=== PATIENT | male | born 1975 | race Caucasian/White ===

== ENCOUNTER 2016-12-08 15:46 | Emergency (ER) | payer OTHER ==
--- NOTE | 2016-12-08 16:28 | EDPHY ---
H & P Stated Complaint: MULTIPLE AREAS OF ABCESS AND SKIN INFECTIONS HPI/ROS: HPI CHIEF COMPLAINT: Multiple skin lesions, excoriations, possible cellulitis and infection HISTORY OF PRESENT ILLNESS: This patient very pleasant 41-year-old male, significant past medical history for IV drug use, and skin picking, endocarditis with tricuspid valve replacement, presents emergency room with extensive aches skin excoriations down his arms. He states that he has Skin knot picker cloth. He is concerned that some of these excoriated sites are infected. He denies fever. He denies chest pain or shortness of breath. He denies any recent IV drug use except for 1 month ago. He does IV heroin. He denies any IV drug use in the past month. 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 Exam Constitutional triage nursing summary reviewed, vital signs reviewed, awake/ alert. Eyes normal conjunctivae and sclera, EOMI, PERRLA. HENT normal inspection, atraumatic, moist mucus membranes, no epistaxis, neck supple/ no meningismus, no raccoon eyes. Respiratory clear to auscultation bilaterally, normal breath sounds, no respiratory distress, no wheezing. Cardiovascular no murmur on exam. rate normal, regular rhythm, no murmur, no edema, distal pulses normal. Gastrointestinal soft, non-tender, no rebound, no guarding, normal bowel sounds, no distension, no pulsatile mass. Genitourinary no CVA tenderness. Musculoskeletal no midline vertebral tenderness, full range of motion, no calf swelling, no tenderness of extremities, no meningismus, good pulses, neurovascularly intact. Skin multiple skin excoriated sites down arms that are pink, mild erythema, no mansi abscess, no significant crepitus or induration. Extensive excoriations. Neurologic awake, alert and oriented x 3, AAOx3, moves all 4 extremities equally, motor intact, sensory intact, CN II-XII intact, normal cerebellar, normal vision, normal speech. Psychiatric normal mood/affect. Heme/Lymph/Immune no lymphadenopathy. Differential Diagnosis: This patient has extensive excoriations down his arms concerning for staph/strep infection. I do not visualize any significant abscess down his arms. There is numerous excoriated picking sites. Possible IV drug use sites. There is no murmur on exam. Plan for this patient warm compresses, warm soaks, Keflex and Bactrim. He understands watch he has areas closely and return emergency room if there worse. Vital signs noted to be stable afebrile. Nontoxic appearing. No murmur on exam. Source: Patient - Personal History Current Tetanus/Diphtheria Vaccine: No Tetanus Vaccine Date: <10yrs - Medical/Surgical History Hx Asthma: No Hx Chronic Respiratory Disease: Yes Hx Diabetes: No Hx Cardiac Disease: No Hx Renal Disease: No Hx Cirrhosis: No Hx Alcoholism: Yes Hx HIV/AIDS: No Hx Splenectomy or Spleen Trauma: No Other PMH: chronic PNA. bipolar. tricuspid valve repair 2011, pericarditis. - Social History Smoking Status: Current every day smoker Constitutional: Initial Vital Signs Temperature (C) 37.4 C 12/08/16 15:55 Heart Rate 88 12/08/16 15:55 Respiratory Rate 18 12/08/16 15:55 Blood Pressure 119/76 12/08/16 15:55 O2 Sat (%) 97 12/08/16 15:55 O2 Delivery Mode Room Air Allergies/Adverse Reactions: No Allergies [NKDA] Allergy (Verified 09/19/15 01:17) CATS Allergy (Uncoded 08/27/12 02:02) Home Medications: Medication Instructions Recorded ALPRAZolam [Xanax 1 MG (*)] 1 mg PO TID PRN 07/21/11 Bupropion HCl [Bupropion XL] 300 mg PO DAILY 07/21/11 FLUoxetine [Prozac 20 MG (*)] 60 mg PO DAILY 07/21/11 lamoTRIgine [LamICTAL 100 MG (*)] 200 mg PO DAILY 07/21/11 Zolpidem Tartrate [Ambien 10 mg] 10 mg PO HS PRN 06/04/12 Albuterol Hfa Anes Only [Proair 2 puffs IH Q6H PRN 08/27/12 Hfa Icu (*)] Asenapine Maleate [Saphris] 10 mg SL HS PRN 04/05/13 Dextroamphetamine/Amphetamine 40 mg PO DAILY 08/27/12 [Adderall Xr 20 mg Capsule] Propranolol HCl [Inderal 20mg (*)] 20 mg PO DAILY PRN 08/27/12 Multivitamins [Multivitamin (*)] 1 each PO DAILY 09/10/15 Acetaminophen [Tylenol 325mg (*)] 650 mg PO Q4 PRN #0 tab 09/14/15 Azithromycin [Zithromax] 250 mg PO DAILY #5 tab 09/14/15 Aspirin 81mg (OTC) 09/19/15 Cephalexin [Keflex] 500 mg PO Q6H #28 cap 12/08/16 Sulfamethox/Tmp 800/160 mg 1 tab PO BID@1000,2200 #14 tab 12/08/16 [Bactrim Ds] Departure - Departure Disposition: Home, Routine, Self-Care Clinical Impression: Cellulitis Qualifiers: Site of cellulitis: extremity Site of cellulitis of extremity: upper extremity Laterality: unspecified laterality Qualified Code(s): L03.119 - Cellulitis of unspecified part of limb Condition: Good Instructions: Cellulitis (ED) Additional Instructions: 1. I recommend perform warm compresses or soaks 2 to 3 times a day. 2. Take antibiotics as prescribed. 3. Return emergency room if you have worsening symptoms includes worsening redness, swelling, pain, fever. Referrals: Amy Faulkner MD [Primary Care Provider] - As per Instructions Prescriptions: Cephalexin [Keflex] 500 mg PO Q6H #28 cap Sulfamethox/Tmp 800/160 mg [Bactrim Ds] 1 tab PO BID@1000,2200 #14 tab
[2016-12-08 16:55] VITALS: BP 136/78; PULSE 70; RESP 20; TEMP 98.2; O2SAT 96
== END 2016-12-08 17:05 | disposition home or self-care (01) ==
DX: L03.114 Cellulitis of left upper limb (principal); L03.113 Cellulitis of right upper limb; F17.200 Nicotine dependence, unspecified, uncomplicated; Z79.82 Long term (current) use of aspirin

== ENCOUNTER 2017-06-24 18:21 | Inpatient (IN) | payer OTHER ==
--- NOTE | 2017-06-24 19:35 | EDPHY ---
HPI/HX/ROS/PE/MDM Narrative: CHIEF COMPLAINT: "Shortness of breath and achiness all over" HPI: The patient is a 42 y/o male with a history of IV drug abuse and endocarditis requiring tricuspid valve replacement complaining of increasing shortness of breath and myalgias over the last couple days. He has recurrent episodes of pneumonia and was most recently admitted here in August 2015 for this. He has COPD and uses home O2, but does not usually require it when not sleeping. He is currently requiring 9LPM O2 to maintain normal SpO2 saturation here. He has difficulty walking due to dyspnea and thinks he's had a fever, but does not have a thermometer to measure it. REVIEW OF SYSTEMS: Aside from elements discussed in the HPI, a comprehensive 10-point review of systems was reviewed and is negative. 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 PHYSICAL EXAM: General:Patient is alert, increased respiratory effort. 9LPM to maintain 93% saturation ENT:Eyes are normal to inspection. ENT inspection normal. Neck: Normal inspection. Full range of motion. Respiratory:Tachypneic. Breath sounds normal bilaterally. Cardiovascular: Regular rate and rhythm. Strong peripheral pulses. Normal cap refill. Abdomen:The abdomen is nontender to palpation. There are no peritoneal signs. Back: Normal to inspection. No tenderness to palpation. Skin: Normal color. Sores on arms. Warm and dry. Extremities: Normal appearance. Full range of motion. Neuro: Oriented x3. Normal motor function. Normal sensory function. ED Course: This is a 42 y/o male with history of IV drug abuse leading to endocarditis and tricuspid valve replacement who presents with a few-day history of progressive exertional dyspnea, subjective fever, and myalgias. He has a history of recurrent pneumonia infections and COPD exacerbations as well. He is tachypneic and requiring supplemental O2 at 9LPM to maintain normal saturation here. He is afebrile. Plan for IV, labs, flu swab, EKG, chest x-ray. Patient does not meet sepsis criteria. Flu swab is negative. 2037: Patient stated to RN he would leave if he was not given Xanax. He was informed that I will not be ordering Xanax in the ED. Chest x-ray: pneumonia, pulmonary edema. BNP is 1000. The 12 lead EKG was interpreted by myself. See hard copy and/or "tracemaster" electronic copy for interpretation. Reassessed patient and recommended admission for pneumonia and pulmonary edema. He agrees to this. MDM: This patient presents with hypoxia and PNA in the setting of a complicated medical history. Patient is not entirely straightforward, and past charting contains discrepancies as to whether he had a previous valve replacement vs. annuloplasty, and whether he is actively using IV drugs. I suspect he likely is , and a note from approximately 5 months ago indicates he had been using around that time, despite the fact he tells the hospitalist it has been 10 years. We will treat patient with intensive antiobiotic therapy given hx MRSA and question of artificial valve until this can all be sorted out. No signs of septic shock, PE, ACS, VT or PTx. - Data Points Imaging Results: Imaging Impressions Chest X-Ray 06/24/17 20:10 Impression: 1. Findings suggestive of cardiogenic pulmonary edema are noted. 2. Asymmetric opacity in the right lung could be either superimposed pneumonia or asymmetric pulmonary edema. Results called and discussed with Antoni James MD on 06/24/2017 at 22:41 Imaging: I viewed and interpreted images myself Laboratory Results: Laboratory Results 06/24/17 19:35 06/24/17 19:35 06/24/17 06/24/17 06/24/17 20:00 19:40 19:35 WBC RBC Hgb Hct MCV MCH MCHC RDW Plt Count MPV Neut % (Auto) Lymph % (Auto) Love % (Auto) Eos % (Auto) Baso % (Auto) Nucleat RBC Rel Count Absolute Neuts (auto) Absolute Lymphs (auto) Absolute Monos (auto) Absolute Eos (auto) Absolute Basos (auto) Absolute Nucleated RBC Immature Gran % Immature Gran # VBG Lactic Acid 2.1 mmol/L mmol/L (0.7-2.1) Sodium Potassium Chloride Carbon Dioxide Anion Gap BUN Creatinine Estimated GFR Glucose Calcium Troponin I NT-Pro-B Natriuret Pep 1000 pg/mL H pg/mL (0-125) Nasal Influenza A PCR NEGATIVE FOR FLU A (NEGATIVE) Nasal Influenza B PCR NEGATIVE FOR FLU B (NEGATIVE) 06/24/17 06/24/17 19:35 19:35 WBC 13.78 10^3/uL H 10^3/uL (3.80-9.50) RBC 4.20 10^6/uL L 10^6/uL (4.40-6.38) Hgb 13.7 g/dL g/dL (13.7-17.5) Hct 38.0 % L % (40.0-51.0) MCV 90.5 fL fL (81.5-99.8) MCH 32.6 pg pg (27.9-34.1) MCHC 36.1 g/dL g/dL (32.4-36.7) RDW 12.5 % % (11.5-15.2) Plt Count 177 10^3/uL 10^3/uL (150-400) MPV 9.5 fL fL (8.7-11.7) Neut % (Auto) 74.1 % % (39.3-74.2) Lymph % (Auto) 15.3 % % (15.0-45.0) Love % (Auto) 9.4 % % (4.5-13.0) Eos % (Auto) 0.3 % L % (0.6-7.6) Baso % (Auto) 0.2 % L % (0.3-1.7) Nucleat RBC Rel Count 0.0 % % (0.0-0.2) Absolute Neuts (auto) 10.22 10^3/uL H 10^3/uL (1.70-6.50) Absolute Lymphs (auto) 2.11 10^3/uL 10^3/uL (1.00-3.00) Absolute Monos (auto) 1.29 10^3/uL H 10^3/uL (0.30-0.80) Absolute Eos (auto) 0.04 10^3/uL 10^3/uL (0.03-0.40) Absolute Basos (auto) 0.03 10^3/uL 10^3/uL (0.02-0.10) Absolute Nucleated RBC 0.00 10^3/uL 10^3/uL (0-0.01) Immature Gran % 0.7 % % (0.0-1.1) Immature Gran # 0.09 10^3/uL 10^3/uL (0.00-0.10) VBG Lactic Acid Sodium 137 mEq/L mEq/L (135-145) Potassium 5.5 mEq/L H mEq/L (3.5-5.2) Chloride 103 mEq/L mEq/L (97-110) Carbon Dioxide 20 mEq/l L mEq/l (22-31) Anion Gap 14 mEq/L mEq/L (8-16) BUN 16 mg/dL mg/dL (7-23) Creatinine 0.8 mg/dL mg/dL (0.7-1.3) Estimated GFR > 60 Glucose 114 mg/dL H mg/dL (70-100) Calcium 9.0 mg/dL mg/dL (8.5-10.4) Troponin I < 0.012 ng/mL ng/mL (0.000-0.034) NT-Pro-B Natriuret Pep Nasal Influenza A PCR Nasal Influenza B PCR General Time Seen by Provider: 06/24/17 19:24 Initial Vital Signs: Initial Vital Signs Temperature (C) 37.1 C 06/24/17 18:30 Heart Rate 92 06/24/17 18:30 Respiratory Rate 20 06/24/17 18:30 Blood Pressure 124/79 H 06/24/17 18:30 O2 Sat (%) 89 L 06/24/17 18:30 O2 Delivery Mode Oxymizer O2 (L/minute) 10 Allergies/Adverse Reactions: No Allergies [NKDA] Allergy (Verified 09/19/15 01:17) CATS Allergy (Uncoded 08/27/12 02:02) Home Medications: Medication Instructions Recorded ALPRAZolam [Xanax 1 MG (*)] 1 mg PO TID PRN 07/21/11 FLUoxetine [Prozac 20 MG (*)] 60 mg PO DAILY 07/21/11 lamoTRIgine [LamICTAL 100 MG (*)] 200 mg PO DAILY 07/21/11 Zolpidem Tartrate [Ambien 10 mg] 10 mg PO HS PRN 06/04/12 Asenapine Maleate [Saphris] 10 mg SL HS PRN 08/27/12 Propranolol HCl [Inderal 20mg (*)] 20 mg PO DAILY PRN 08/27/12 Multivitamins [Multivitamin (*)] 1 each PO DAILY 09/10/15 Acetaminophen [Tylenol 325mg (*)] 650 mg PO Q4 PRN #0 tab 09/14/15 Aspirin [Aspirin 81mg (*)] 81 mg PO DAILY 09/19/15 Albuterol [Proventil Inhaler HFA 1 - 2 puffs IH Q4H PRN 06/25/17 (*)] Amphet Asp and D/Amphet [Adderall 40 - 60 mg PO DAILY 06/25/17 20 mg (*)] buPROPion XL [Wellbutrin Xl] 300 mg PO DAILY 06/25/17 Departure - Departure Disposition: [facility] Inpatient Acute Clinical Impression: Pulmonary edema Qualifiers: Chronicity: acute Qualified Code(s): J81.0 - Acute pulmonary edema Pneumonia Qualifiers: Pneumonia type: due to unspecified organism Laterality: right Lung location: unspecified part of lung Qualified Code(s): J18.9 - Pneumonia, unspecified organism Condition: Fair Report Scribed for: Antoni James Report Scribed by: Diann Haskins Date of Report: 06/24/17 Time of Report: 20:21 Physician Review and Approval Statement: Portions of this note were transcribed by an ED scribe. I personally performed the history, physical exam, and medical decision making; and confirm the accuracy of the information in the transcribed note.
[2017-06-24 19:47] LABS: PLATELET COUNT 177 10^3/uL (150-400)
--- NOTE | 2017-06-24 21:54 | CPEKG ---
Heart Rate: 82 RR Interval: 732 P-R Interval: 168 QRSD Interval: 100 QT Interval: 384 QTC Interval: 449 P [place]: -1 QRS [place]: 49 T Wave [place]: 97 EKG Severity - ABNORMAL ECG - EKG Impression: SINUS RHYTHM EKG Impression: PROBABLE LEFT ATRIAL ABNORMALITY EKG Impression: NONSPECIFIC T ABNORMALITIES, LATERAL LEADS Electronically Signed By: Kj Galeano 26-Jun-2017 12:53:10
[2017-06-24] MEDS ORDERED: PIPERACILLIN/TAZO 4.5 GM/DEX 100 ML IV ONE (23:48)
[2017-06-24] MEDS ORDERED: VANCOMYCIN HCL/NORMAL SALINE 250 ML IV ONE (23:48)
[2017-06-25] MEDS ORDERED: ONDANSETRON DISINTEGRATING 4 MG TAB PO PRN (00:06)
[2017-06-25] MEDS ORDERED: ALBUTEROL 3 ML DEYVIAL IH PRN (00:06)
[2017-06-25] MEDS ORDERED: ONDANSETRON 4 MG/2 ML VIAL IVP PRN (00:06)
[2017-06-25] MEDS ORDERED: ACETAMINOPHEN 325 MG TAB PO PRN ×2 (00:06→11:38)
[2017-06-25 03:05] LABS: PLATELET COUNT 168 10^3/uL (150-400)
--- NOTE | 2017-06-25 03:30 | PDGENHP ---
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 He uses 2 L/min O2 at baseline for complicated pulmonary hx. Upon arrival in the ED patient was significantly hypoxic requiring 10 L via non-rebreather; also noted to be febrile with diffuse bilateral pulmonary opacities. Patient admitted for further diagnostic work-up and care. Of note, patient thinks there may be mold in his house but has not had this confirmed. History Information - Allergies/Home Medication List Allergies/Adverse Reactions: No Allergies [NKDA] Allergy (Verified 09/19/15 01:17) CATS Allergy (Uncoded 08/27/12 02:02) Home Medications: ALPRAZolam [Xanax 1 MG (*)] 1 mg PO TID PRN 07/21/11 [Last Taken 09/10/15 15:00] Bupropion HCl [Bupropion XL] 300 mg PO DAILY 07/21/11 [Last Taken 09/10/15 09:00 ] FLUoxetine [Prozac 20 MG (*)] 60 mg PO DAILY 07/21/11 [Last Taken 09/10/15 09:00 ] lamoTRIgine [LamICTAL 100 MG (*)] 200 mg PO DAILY 07/21/11 [Last Taken 09/10/15 09:00] Zolpidem Tartrate [Ambien 10 mg] 10 mg PO HS PRN 06/04/12 [Last Taken 09/08/15] Albuterol Hfa Anes Only [Proair Hfa Icu (*)] 2 puffs IH Q6H PRN 08/27/12 [Last Taken 09/10/15 15:00] Asenapine Maleate [Saphris] 10 mg SL HS PRN 08/27/12 [Last Taken 09/10/15 00:00] Dextroamphetamine/Amphetamine [Adderall Xr 20 mg Capsule] 40 mg PO DAILY [Last Taken 09/09/15 09:00] Propranolol HCl [Inderal 20mg (*)] 20 mg PO DAILY PRN 08/27/12 [Last Taken 09/09 09:00] Multivitamins [Multivitamin (*)] 1 each PO DAILY 09/10/15 [Last Taken 09/10/15 09:00] Aspirin 81mg (OTC) 09/19/15 [Last Taken Unknown] I have personally reviewed and updated: family history, medical history - Past Medical History COPD Additional medical history: MANUFACTURING SR ENGINEER. CHRF - 2 L/min O2 @ baseline. TV annuloplasty. Hx of MRSA endocarditis - Surgical History Additional surgical history: TV annuloplasty - Family History Positive for: cancer - Social History Smoking Status: Former smoker Review of Systems Review of Systems: ROS: 10pt was reviewed & negative except for what was stated in HPI & below Physical Exam Physical Exam: Temp Pulse Resp BP Pulse Ox 38.0 C 76 19 116/66 96 06/25/17 02:30 06/25/17 02:30 06/25/17 02:30 06/25/17 02:30 06/25/17 02:30 O2 (L/minute) 7 Constitutional: appears nourished, uncomfortable Eyes: PERRL, EOMI Ears, Nose, Mouth, Throat: moist mucous membranes, no oral mucosal ulcers Cardiovascular: regular rate and rhythym, systolic murmur Respiratory: inspiratory crackles (Bilateral, diffuse), No expiratory wheeze Gastrointestinal: normoactive bowel sounds, soft, non-tender abdomen Skin: warm, normal color Musculoskeletal: full muscle strength, no muscle tenderness Neurologic: AAOx3, CN II-XII Intact Psychiatric: interacting appropriately, not anxious Lab Data & Imaging Review 06/25/17 02:55 06/25/17 02:55 WBC 14.90 10^3/uL (3.80-9.50) H 06/25/17 02:55 RBC 3.91 10^6/uL (4.40-6.38) L 06/25/17 02:55 Hgb 12.8 g/dL (13.7-17.5) L 06/25/17 02:55 Hct 35.4 % (40.0-51.0) L 06/25/17 02:55 MCV 90.5 fL (81.5-99.8) 06/25/17 02:55 MCH 32.7 pg (27.9-34.1) 06/25/17 02:55 MCHC 36.2 g/dL (32.4-36.7) 06/25/17 02:55 RDW 12.5 % (11.5-15.2) 06/25/17 02:55 Plt Count 168 10^3/uL (150-400) 06/25/17 02:55 MPV 9.5 fL (8.7-11.7) 06/25/17 02:55 Neut % (Auto) 65.9 % (39.3-74.2) 06/25/17 02:55 Lymph % (Auto) 24.3 % (15.0-45.0) 06/25/17 02:55 [place] % (Auto) 8.7 % (4.5-13.0) 06/25/17 02:55 Eos % (Auto) 0.4 % (0.6-7.6) L 06/25/17 02:55 Baso % (Auto) 0.2 % (0.3-1.7) L 06/25/17 02:55 Nucleat RBC Rel Count 0.0 % (0.0-0.2) 06/25/17 02:55 Absolute Neuts (auto) 9.82 10^3/uL (1.70-6.50) H 06/25/17 02:55 Absolute Lymphs (auto) 3.62 10^3/uL (1.00-3.00) H 06/25/17 02:55 Absolute Monos (auto) 1.29 10^3/uL (0.30-0.80) H 06/25/17 02:55 Absolute Eos (auto) 0.06 10^3/uL (0.03-0.40) 06/25/17 02:55 Absolute Basos (auto) 0.03 10^3/uL (0.02-0.10) 06/25/17 02:55 Absolute Nucleated RBC 0.00 10^3/uL (0-0.01) 06/25/17 02:55 Immature Gran % 0.5 % (0.0-1.1) 06/25/17 02:55 Immature Gran # 0.08 10^3/uL (0.00-0.10) 06/25/17 02:55 VBG Lactic Acid 1.1 mmol/L (0.7-2.1) 06/25/17 02:55 Sodium 139 mEq/L (135-145) 06/25/17 02:55 Potassium 5.3 mEq/L (3.5-5.2) H 06/25/17 02:55 Chloride 104 mEq/L (97-110) 06/25/17 02:55 Carbon Dioxide 22 mEq/l (22-31) 06/25/17 02:55 Anion Gap 13 mEq/L (8-16) 06/25/17 02:55 BUN 16 mg/dL (7-23) 06/25/17 02:55 Creatinine 0.9 mg/dL (0.7-1.3) 06/25/17 02:55 Estimated GFR > 60 06/25/17 02:55 Glucose 87 mg/dL (70-100) 06/25/17 02:55 Calcium 8.1 mg/dL (8.5-10.4) L 06/25/17 02:55 Troponin I < 0.012 ng/mL (0.000-0.034) 06/24/17 19:35 NT-Pro-B Natriuret Pep 1000 pg/mL (0-125) H 06/24/17 20:00 Procalcitonin 0.36 ng/mL (0.02-0.10) H 06/24/17 19:58 Nasal Influenza A PCR NEGATIVE FOR FLU A (NEGATIVE) 06/24/17 19:40 Nasal Influenza B PCR NEGATIVE FOR FLU B (NEGATIVE) 06/24/17 19:40 Imaging Review: Imaging Impressions Chest X-Ray 06/24/17 20:10 Impression: 1. Findings suggestive of cardiogenic pulmonary edema are noted. 2. Asymmetric opacity in the right lung could be either superimposed pneumonia or asymmetric pulmonary edema. 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 Plan: 1. Sepsis 2/2 suspected pneumonia - Sepsis per WBC and fever with cough, diffuse infiltrates, and hypoxia. Procalcitonin elevated at 0.31. Flu negative. - S/p Vanc/Zosyn in ED - Will continue w/ CTX/Azithro for CAP coverage - Blood cultures ordered 2. 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 No signs of COPD exacerbation currently. Requiring 10 L/min O2, baseline is 2 L/min. - Admit to SDU for close monitoring - Treat suspected infection as above - Duonebs q6h scheduled + albuterol PRN 3. Diffuse, bilateral pulmonary infiltrates - Described as diffuse, bilateral ground glass opacities on CT chest; worsened from 2013 comparison. Patient has hx of MANUFACTURING SR ENGINEER and reports mold in his house, so HP also a possibility. Does have some diastolic dysfunction on his most recent echo (2015), so could also be cardiogenic noting moderate elevation in BNP. - Repeat TTE - Pulmonary consult to consider steroid treatment - Cautious w/ IVF for now 4. Hx tricuspid annuloplasty 5. 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 6. BPD - Continue home meds Diet - Regular Code - Full Ppx - LMWH Dispo - Admit to inpatient status for severe hypoxia and need for further diagnostic work-up.
[2017-06-25] MEDS: IPRATROPIUM/ALBUTEROL 3 ML DEYVIAL IH SCH ×4 (05:47→21:59)
[2017-06-25] MEDS: cefTRIAXone 1 GM in STERILE WATER INJ 10 ML IV SCH (08:45)
[2017-06-25] MEDS: ENOXAPARIN 40 MG/0.4 ML SYR SC SCH (08:45)
[2017-06-25] MEDS ORDERED: AZITHROMYCIN 250 MG TAB PO ONE (09:00)
--- NOTE | 2017-06-25 11:22 | ECHO ---
[email or web address] [address] [address] Main: [phone] Fax: Transthoracic Echocardiogram Name: KOBI JAY MR#: [id number] Study Date: 06/25/2017 Study Time: 07:59 AM Date of : 1975 Age: 42 year(s) Height: 172.7 cm (68 in.) Weight: 74.84 kg (165 lb.) BSA: 1.88 m2 Gender: Male Examination: Echo Indication: pulmonary edema Image Quality: Adequate Contrast: Requested by: Rajendra Del Toro BP: 101 mmHg/53 mmHg Heart Rate: Rhythm: Normal sinus rhythm Indication: pulmonary edema Procedure Staff Vocational Childcare Teacher: Marcy Ramírez [facility] Reading Physician: Holland Rai Requesting Provider: Conclusions: Normal global systolic LV function. EF is 67 %. Severely dilated right ventricle. Reduced RV function. There is abnormal septal motion with diastolic flattening suggestive of RV volume/pressure overload. . The left atrium is moderately dilated. The right atrium is moderately to severely dilated. Right ventricular systolic pressure measures 53mmHg. Moderate tricuspid regurgitation is present. Mild tricuspid valve stenosis is present. There is a tricuspid valve ring. The IVC is mildly dilated. Measurements: Chambers Valvular Assessment AV/MV Valvular Assessment TV/PV Normal Normal Normal Name Value Range Name Value Range Name Value Range Ao Neema (MM): 3.4 cm (2.2 cm-3.7 AV Vmax: 1.33 m/s (1 m/s-1.7 TV Vmax: 1.47 m/s (0.3 m/s-0.7 cm) m/s) m/s) IVSd (2D): 0.6 cm (0.6 cm-1.1 AV maxP mmHg ( - ) TV Vmean: 1.03 m/s ( - ) cm) LVOT Vmax: 1.14 m/s (0.7 m/s-1.1 TV PGmax: 9 mmHg ( - ) LVDd (2D): 4.8 cm (4.2 cm-5.9 m/s) TV PGmean: 5 mmHg ( - ) cm) MV E Vmax: 1.03 m/s ( - ) TV VTI: 50.80 cm ( - ) LVDs (2D): 3.3 cm (2.1 cm-4 MV A Vmax: 0.55 m/s ( - ) TR Vmax: 3.26 mm/s ( - ) cm) MV E/A: 1.87 ( - ) TR PGmax: 43 mmHg ( - ) LVPWd (2D): 0.8 cm (0.6 cm-1 cm) syst. PAP: 53 mmHg ( - ) LVEF (BP): 67 % (>=55 %) PV Vmax: 0.79 m/s (0.6 m/s-0.9 m/s) PV PGmax: 3 mmHg ( - ) Patient: KOBI JAY Study Date: 06/25/2017 Page 1 of 2 07:59 AM RVDd(2D): 5.4 cm (1.9 cm-3.8 cmmm) Continued Measurements: Chambers Valvular Assessment AV/MV Valvular Assessment TV/PV Name Value Name Value Name Value LADs Lon.5 cm MV DecTime: 165 m/s CVP (est.): 10 mmHg LA Area: 23.7 cm2 MV E' Septal: 0.07 m/s LA Volume: 78 ml MV E/E' Septal: 14.70 LA Volume Index: 41.5 ml/m2 MV E/E' Lateral: 7.70 TAPSE: 1.8 cm RA Area: 28.0 cm2 Additional Vessels Name Value Ao Ascendin.9 cm Findings: Left Ventricle: Normal size left ventricle. No LV hypertrophy. Normal global systolic LV function. EF is 67 %. There is paradoxic septal motion suggestive of bundle branch block, paced cardiac rhythm, or prior cardiac surgery. Normal diastolic LV function. Right Ventricle: Severely dilated right ventricle. Reduced RV function. There is abnormal septal motion with diastolic flattening suggestive of RV volume/pressure overload. . Left Atrium: The left atrium is moderately dilated. Right Atrium: The right atrium is moderately to severely dilated. Mitral Valve: The mitral valve is normal in appearance and function. Trivial mitral valve regurgitation. No mitral stenosis is present. Aortic Valve: The aortic valve is tri-leaflet and functions normally. There is no aortic valve regurgitation. No aortic valve stenosis is present. Tricuspid Valve: Right ventricular systolic pressure measures 53mmHg. The pulmonary artery pressure is moderately increased. Moderate tricuspid regurgitation is present. Mild tricuspid valve stenosis is present. There is a tricuspid valve ring. Pulmonic Valve: The pulmonic valve is normal in appearance and function. Trivial to mild pulmonic valve regurgitation. Aorta: Normal size aortic root measuring 3.4 cm. Normal size ascending aorta measuring 2.9 cm. IVC: The IVC is mildly dilated. There is greater cristina 50% respiratory excursion. Pericardium: No pericardial effusion. (No Signature Object) Patient: KOBI JAY Study Date: 06/25/2017 Page 2 of 2 07:59 AM [id number]
[2017-06-25] MEDS ORDERED: PROPRANOLOL HCL 20 MG TAB PO PRN (11:38)
[2017-06-25] MEDS ORDERED: ALPRAZolam 1 MG TAB PO PRN (11:38)
[2017-06-25] MEDS ORDERED: NON-FORMULARY NEW DRUG (Zolpidem Tartrate [Ambien 10 Mg] 10 MG) PO PRN (11:38)
--- NOTE | 2017-06-25 11:39 | ASMTCMCOM ---
CM Note CM Note Notes: Patient admitted for pneumonia/sepsis on top of complex pulmonary history. I spoke with him - he says he uses 02 at home PRN, his supplier is [employer]. Although he has a [place] address, he lives in [place]. I don't anticipate any discharge needs, but if any arise, Case Management can assist. Date Signed: 06/25/2017 11:39 AM Electronically Signed By:Yue Stevens RN
[2017-06-25] MEDS ORDERED: ALPRAZolam 0.5 MG TAB PO PRN (11:44)
[2017-06-25] MEDS ORDERED: ZOLPIDEM TARTRATE 5 MG TAB PO PRN (11:45)
[2017-06-25] MEDS ORDERED: ADDERALL 20 MG TAB PO SCH (11:45)
[2017-06-25] MEDS: ALPRAZolam 0.5 MG TAB PO SCH ×2 (12:10→16:35)
[2017-06-25] MEDS: lamoTRIgine 100 MG TAB PO SCH (12:10)
[2017-06-25] MEDS: FLUoxetine 20 MG CAP PO SCH (12:11)
[2017-06-25] MEDS: buPROPion XL 150 MG TAB PO SCH (12:11)
[2017-06-25] MEDS: ADDERALL 20 MG TAB PO SCH (12:11)
--- NOTE | 2017-06-25 14:05 | PDMN ---
Medical Necessity Medical necessity: est los>2mn for spies r/t suspected PNA, W/elevated wbc, fever, cough, infiltrates, and severe hypoxia, acute on CHRF; admit to ICU/SDU for IV abx, O2 10 L (baseline 2L), TTE, scheduled nebs, pulmonary consult; comorbid COPD, hx TV annuloplasty and MRSA endocarditis, IVDA; per order and H& P 06/25/17
--- NOTE | 2017-06-25 14:24 | HOSPPROG ---
Hospitalist Progress Note Assessment/Plan: * acute on chronic respiratory failure * Probably acute bronchitis/pneumonia superimposed on chronic lung disease * Has been living in apartment building that he says but many people of gotten sick possibly mold * Will continue antibiotics * Will add steroids * Pulmonology input appreciated * ? Chronic interstitial lung disease * Uncertain cause * pulmonary hypertension/right heart failure on current echo * This is new from August 2015 * Cardiology feels there is mild leaking of tricuspid valve and for repeat echo in 6 months * This could be from worsening lung disease I suppose * history of COPD * history of IV drug abuse * anxiety Subjective: Feels a little bit better. Says that he usually gets better quicker with steroids Objective: Vital Signs Temp Pulse Resp BP Pulse Ox 36.9 C 75 24 H 104/54 L 92 06/25/17 12:00 06/25/17 12:00 06/25/17 12:00 06/25/17 12:00 06/25/17 12:00 Laboratory Results 06/25/17 02:55 06/25/17 02:55 06/24/17 06/25/17 06/26/17 05:59 05:59 05:59 Intake Total 600 Output Total 600 Balance 0 Discussed with pulmonology - Physical Exam Constitutional: no apparent distress, appears nourished, not in pain Eyes: anicteric sclera, EOMI Ears, Nose, Mouth, Throat: moist mucous membranes, hearing normal, ears appear normal Cardiovascular: regular rate and rhythym, no murmur, rub, or gallop Respiratory: no respiratory distress, no rales or rhonchi, reduced air movement Gastrointestinal: normoactive bowel sounds, soft, non-tender abdomen, no palpable masses Skin: warm Neurologic: AAOx3 Psychiatric: interacting appropriately, not anxious, not encephalopathic, thought process linear ICD10 Worksheet Patient Problems: Problems Problem Status Onset Pneumonia Acute Pulmonary edema Acute Respiratory failure Active Bipolar disorder Acute Chronic Disease Mgmt/Transitional Care Acute Methicillin resistant Staphylococcus aureus infection Acute ~03/31/17 Tricuspid valve disorder Acute
[2017-06-25] MEDS: predniSONE 20 MG TAB PO SCH (16:36)
--- NOTE | 2017-06-25 17:23 | GCON ---
[f rep st] CONSULTATION PULMONARY/CRITICAL CARE CONSULTATION DATE OF CONSULTATION: 06/25/2017 REFERRING PHYSICIAN: Nimesh Claros MD REASON FOR REFERRAL: Evaluation and management of pneumonia. HISTORY: The patient is a 42-year-old male with history of endocarditis related to drug abuse with t ricuspid valve replacement over 10 years ago, as well as chronic lung disease. I saw him in 2012 at the time of the hospitalization for fluctuating alveolar infiltrates, and performed a bronchoscopy at that time that had very small fragments that suggested cryptogenic organizing pneumonia (CONTENT STRATEGIST). He w as treated with antibiotics and steroids and improved. He was then admitted in the spring to [facility], where he was seen by my partner, Dr. Cotter, and treated for pneumonia w hich resolved radiographically and symptomatically with antibiotics. Since then he has done fairly w ell, using oxygen just at night and sometimes around the house, but not with activities when he leave s the house. He has some dyspnea with exertion, but is able to be quite functional. He was doing fa irly well until about 2 days ago, when he had the rather rapid onset of shortness of breath, some ple uritic chest pain, weakness, and a mild cough. He was seen in emergency department and he was hypoxe nolan, so his oxygen flow was increased. He was found to have bilateral pulmonary infiltrates and was admitted, and started on vancomycin and Zosyn, followed by transition to ceftriaxone and azithromycin . He reports that he is feeling a bit better, but feels a bit dehydrated. His respiratory symptoms are improved a bit, but he still not does not feel he is back to baseline. PAST MEDICAL HISTORY: 1. Status post tricuspid valve annuloplasty. 2. Chronic obstructive pulmonary disease with emphysema seen on CT scan. MEDICATIONS: At the time of admission included Prozac, Xanax, Lamictal, Ambien, Saphris, Inderal, We llbutrin, albuterol, and Adderall. ALLERGIES: None. SOCIAL HISTORY: The patient is a former smoker and IV drug abuser. FAMILY HISTORY: Positive for cancer. REVIEW OF SYSTEMS: A 10-point review of systems is remarkable for complaint of chronic myalgias. PHYSICAL EXAMINATION: GENERAL: The patient is awake, alert, in no acute distress. VITAL SIGNS: Bl ood pressure is 104/54, with a heart rate of 75, he is afebrile, oxygen saturations are 92% on 4 L. HEENT: Normocephalic and atraumatic. No icterus. NECK: No JVD. Trachea is midline. CHEST: Some fine rales bilaterally. CARDIAC: Regular rate and rhythm without murmur. ABDOMEN: Soft, nontende r. Bowel sounds are present. EXTREMITIES: No clubbing, cyanosis, or edema. LABORATORY: Chemistry group is remarkable for potassium of 5.3. BNP is 1000, procalcitonin is 0.36. White blood count is 14.9, with a hemoglobin of 12.8, and a platelet count of 168. Lactate is 1.1. Nasal swab is negative for flu A and flu B. A CT scan of the chest shows fairly extensive bilateral patchy ground-glass infiltrates. These are similar to what were seen in 2013, although an interval c hest x-ray in 2016 showed resolution of infiltrates. Images reviewed by me. ASSESSMENT: Pneumonia. This could be a community-acquired pneumonia, either viral or bacterial. Re turn of cryptogenic organizing pneumonia is also possible. The patient is being appropriately treate d with empiric antibiotics. I would hold off on steroids at the current time and see if he responds. RECOMMENDATIONS: 1. Continue current empiric antibiotics. 2. Check a respiratory viral pattern. 3. If the patient does not respond clinically to empiric antibiotics, consider either an empiric tri al of steroids or a repeat bronchoscopic biopsy. 4. I will check a CK level given the patient's complaint of myalgias. /[id number]/MODL
[2017-06-26] MEDS: ALPRAZolam 0.5 MG TAB PO SCH ×2 (00:16→10:04)
[2017-06-26] MEDS: ASENAPINE MALEATE 10 MG SUBLINGUAL TAB SL PRN (00:18)
[2017-06-26 05:09] LABS: PLATELET COUNT 193 10^3/uL (150-400)
[2017-06-26] MEDS: IPRATROPIUM/ALBUTEROL 3 ML DEYVIAL IH SCH ×4 (05:45→20:59)
[2017-06-26] MEDS ORDERED: AZITHROMYCIN 250 MG TAB PO SCH (09:00)
[2017-06-26] MEDS: AZITHROMYCIN 250 MG TAB PO SCH (09:22)
[2017-06-26] MEDS: cefTRIAXone 1 GM in STERILE WATER INJ 10 ML IV SCH (09:22)
[2017-06-26] MEDS: lamoTRIgine 100 MG TAB PO SCH (09:22)
[2017-06-26] MEDS: ADDERALL 20 MG TAB PO SCH (09:22)
[2017-06-26] MEDS: ENOXAPARIN 40 MG/0.4 ML SYR SC SCH (09:22)
[2017-06-26] MEDS: FLUoxetine 20 MG CAP PO SCH (09:23)
[2017-06-26] MEDS: ASPIRIN 81 MG CHEWABLE TAB PO SCH (09:23)
[2017-06-26] MEDS: predniSONE 20 MG TAB PO SCH (09:23)
[2017-06-26] MEDS: buPROPion XL 150 MG TAB PO SCH (09:23)
--- NOTE | 2017-06-26 17:17 | HOSPPROG ---
Hospitalist Progress Note Assessment/Plan: New patient encounter * acute on chronic respiratory failure * Probably acute bronchitis/pneumonia superimposed on chronic lung disease * Has been living in apartment building that he says but many people of gotten sick possibly mold * Will continue antibiotics * cont steroids * Pulmonology input appreciated * COPD with exacerbation * CAP * ? Chronic interstitial lung disease * Uncertain cause * pulmonary hypertension/right heart failure on current echo * This is new from August 2015 * Cardiology feels there is mild leaking of tricuspid valve and for repeat echo in 6 months * This could be from worsening lung disease I suppose * history of COPD * history of IV drug abuse * anxiety * Lovenox for DVT proph Plan: improving overall Leukocytosis is improving Still on high amounts of O2 cont abx and steroids repeat labs in a.m. Subjective: transferred out of the ICU. Still SOB, worse with exertion. NO CP. NO leg swelling. Overall feels better Objective: Vital Signs Temp Pulse Resp BP Pulse Ox 36.6 C 80 18 114/64 92 06/26/17 14:51 06/26/17 16:20 06/26/17 16:20 06/26/17 14:51 06/26/17 16:20 Microbiology 06/25/17 20:14 Respiratory Panel (PCR) - Final Nasal, Sinus - Swab No Organism Detected Laboratory Results 06/26/17 04:50 06/26/17 04:50 06/25/17 06/26/17 06/27/17 05:59 05:59 05:59 Intake Total 600 2000 550 Output Total 600 2000 Balance 0 0 550 - Physical Exam Constitutional: no apparent distress Eyes: PERRL, EOMI Ears, Nose, Mouth, Throat: moist mucous membranes Cardiovascular: regular rate and rhythym, No edema Respiratory: reduced air movement Gastrointestinal: normoactive bowel sounds Genitourinary: no bladder fullness Skin: warm Neurologic: AAOx3 Psychiatric: interacting appropriately, not anxious, not encephalopathic, thought process linear Lymph, Heme, Immunologic: No petechiae ICD10 Worksheet Patient Problems: Problems Problem Status Onset Pneumonia Acute Pulmonary edema Acute Respiratory failure Active Bipolar disorder Acute Chronic Disease Mgmt/Transitional Care Acute Methicillin resistant Staphylococcus aureus infection Acute ~03/31/17 Tricuspid valve disorder Acute
[2017-06-26] MEDS: ALPRAZolam 1 MG TAB PO PRN (19:08)
[2017-06-27] MEDS: ALPRAZolam 1 MG TAB PO PRN ×3 (01:34→15:44)
[2017-06-27] MEDS: ASENAPINE MALEATE 10 MG SUBLINGUAL TAB SL PRN (01:34)
[2017-06-27 04:52] LABS: PLATELET COUNT 200 10^3/uL (150-400)
[2017-06-27] MEDS: IPRATROPIUM/ALBUTEROL 3 ML DEYVIAL IH SCH ×4 (05:42→21:33)
[2017-06-27] MEDS: FLUoxetine 20 MG CAP PO SCH (10:31)
[2017-06-27] MEDS: buPROPion XL 150 MG TAB PO SCH (10:31)
[2017-06-27] MEDS: ENOXAPARIN 40 MG/0.4 ML SYR SC SCH (10:31)
[2017-06-27] MEDS: AZITHROMYCIN 250 MG TAB PO SCH (10:31)
[2017-06-27] MEDS: ASPIRIN 81 MG CHEWABLE TAB PO SCH (10:31)
[2017-06-27] MEDS: ADDERALL 20 MG TAB PO SCH ×2 (10:31→12:53)
[2017-06-27] MEDS: lamoTRIgine 100 MG TAB PO SCH (10:32)
[2017-06-27] MEDS: predniSONE 20 MG TAB PO SCH (10:32)
[2017-06-27] MEDS: cefTRIAXone 1 GM in STERILE WATER INJ 10 ML IV SCH (10:59)
--- NOTE | 2017-06-27 12:36 | ASMTCMCOM ---
CM Note CM Note Notes: Spoke w/RN, plan remains the same, anticipate will dc home when medically stable. CM available for any changes. DC Plan: Independent Date Signed: 06/27/2017 12:35 PM Electronically Signed By:Lily Quevedo RN
[2017-06-27] MEDS ORDERED: FUROSEMIDE 20 MG/2 ML VIAL IVP ONE (15:28)
--- NOTE | 2017-06-27 15:33 | HOSPPROG ---
Hospitalist Progress Note Assessment/Plan: * acute on chronic respiratory failure * Probably acute bronchitis/pneumonia superimposed on chronic lung disease * Will continue antibiotics * cont steroids * COPD with exacerbation * CAP * ? Chronic interstitial lung disease * Uncertain cause * pulmonary hypertension/right heart failure on current echo * This is new from August 2015 * Cardiology feels there is mild leaking of tricuspid valve and for repeat echo in 6 months * This could be from worsening lung disease I suppose * history of COPD * history of IV drug abuse * anxiety * Pedal Edema * Generalized Weakness * Lovenox for DVT proph Plan: -Lasix 20mg IV x 1 -cont Rocephin and Azithromycin -Cont Prednisone -PT eval, lora order Subjective: Generalized weakness. Some pedal edema. Still on high amounts of O2 Objective: Vital Signs Temp Pulse Resp BP Pulse Ox 36.4 C 71 20 99/63 L 93 06/27/17 08:00 06/27/17 10:45 06/27/17 10:45 06/27/17 08:00 06/27/17 10:45 Laboratory Results 06/27/17 04:25 06/27/17 04:25 06/26/17 06/27/17 06/28/17 05:59 05:59 05:59 Intake Total 2000 550 Output Total 2000 Balance 0 550 - Physical Exam Constitutional: no apparent distress Eyes: PERRL Ears, Nose, Mouth, Throat: moist mucous membranes, hearing normal Cardiovascular: regular rate and rhythym, edema (trac LE edema) Respiratory: reduced air movement Gastrointestinal: normoactive bowel sounds, soft, non-tender abdomen Skin: warm Musculoskeletal: generalized weakness Neurologic: AAOx3 Psychiatric: interacting appropriately, not anxious, not encephalopathic Lymph, Heme, Immunologic: No petechiae ICD10 Worksheet Patient Problems: Problems Problem Status Onset Pneumonia Acute Pulmonary edema Acute Respiratory failure Active Bipolar disorder Acute Chronic Disease Mgmt/Transitional Care Acute Methicillin resistant Staphylococcus aureus infection Acute ~03/31/17 Tricuspid valve disorder Acute
[2017-06-28] MEDS: ASENAPINE MALEATE 10 MG SUBLINGUAL TAB SL PRN (01:27)
[2017-06-28] MEDS: ALPRAZolam 1 MG TAB PO PRN ×3 (01:27→19:43)
[2017-06-28 05:13] LABS: PLATELET COUNT 231 10^3/uL (150-400)
[2017-06-28] MEDS: IPRATROPIUM/ALBUTEROL 3 ML DEYVIAL IH SCH ×4 (06:16→22:41)
[2017-06-28] MEDS: AZITHROMYCIN 250 MG TAB PO SCH (10:33)
[2017-06-28] MEDS: FLUoxetine 20 MG CAP PO SCH (10:33)
[2017-06-28] MEDS: cefTRIAXone 1 GM in STERILE WATER INJ 10 ML IV SCH (10:33)
[2017-06-28] MEDS: ENOXAPARIN 40 MG/0.4 ML SYR SC SCH (10:33)
[2017-06-28] MEDS: lamoTRIgine 100 MG TAB PO SCH (10:34)
[2017-06-28] MEDS: ADDERALL 20 MG TAB PO SCH ×2 (10:34→14:25)
[2017-06-28] MEDS: predniSONE 20 MG TAB PO SCH (10:34)
[2017-06-28] MEDS: ASPIRIN 81 MG CHEWABLE TAB PO SCH (10:34)
[2017-06-28] MEDS: buPROPion XL 150 MG TAB PO SCH (10:34)
--- NOTE | 2017-06-28 14:47 | HOSPPROG ---
Hospitalist Progress Note Assessment/Plan: * acute on chronic respiratory failure * Probably acute bronchitis/pneumonia superimposed on chronic lung disease * Will continue antibiotics * cont steroids * COPD with exacerbation * CAP * ? Chronic interstitial lung disease * Uncertain cause * pulmonary hypertension/right heart failure on current echo * This is new from August 2015 * Cardiology feels there is mild leaking of tricuspid valve and for repeat echo in 6 months * This could be from worsening lung disease I suppose * history of COPD * history of IV drug abuse * anxiety * Pedal Edema, resolved with Lasix IV x 1 on 06/27. * Generalized Weakness * Lovenox for DVT proph Plan: -cont Rocephin and Azithromycin -Cont Prednisone -Repeat CXR tomorrow -May need additional lasix Subjective: Down to 4 Liters. Still with STORM but says he feels a bit better. No further pedal edema. Objective: Vital Signs Temp Pulse Resp BP Pulse Ox 36.3 C 70 22 H 108/75 90 L 06/28/17 07:29 06/28/17 12:52 06/28/17 12:52 06/28/17 10:37 06/28/17 13:14 Laboratory Results 06/28/17 04:40 06/28/17 04:40 06/27/17 06/28/17 06/29/17 05:59 05:59 05:59 Intake Total 550 Balance 550 - Physical Exam Constitutional: no apparent distress Eyes: PERRL Ears, Nose, Mouth, Throat: moist mucous membranes, hearing normal Cardiovascular: regular rate and rhythym, No edema Respiratory: reduced air movement Gastrointestinal: normoactive bowel sounds Skin: warm Musculoskeletal: full muscle strength Neurologic: AAOx3 Psychiatric: interacting appropriately, not anxious, not encephalopathic Lymph, Heme, Immunologic: No petechiae ICD10 Worksheet Patient Problems: Problems Problem Status Onset Pneumonia Acute Pulmonary edema Acute Respiratory failure Active Bipolar disorder Acute Chronic Disease Mgmt/Transitional Care Acute Methicillin resistant Staphylococcus aureus infection Acute ~03/31/17 Tricuspid valve disorder Acute
--- NOTE | 2017-06-28 15:52 | PDINTPN ---
Magento Web Developer Progress Note Assessment/Plan: Assessment: Pneumonia: Likely infectious, but [employer] WEBSPHERE PORTAL DEVELOPER is a possibility. Respiratory panel negative. Improved, but still with hypoxemia requiring more O2 than his baseline. BNP down. On CTX/Marley, prednisone Plan: Check CXR tomorrow. Hopefully can stop antibiotics if CXR looking better, he'll have had 5 days of antibiotics as of tomorrow. If improved, could taper prednisone. Will check CK due to complaint of muscle aches. 06/28/17 15:54 Subjective: Feels breathing is better, still some STORM but improved. lung burning only occurs with exertion, no symptoms at rest. Objective: Vital Signs Temp Pulse Resp BP Pulse Ox 36.8 C 83 16 132/72 H 90 L 06/28/17 15:35 06/28/17 15:35 06/28/17 15:35 06/28/17 15:35 06/28/17 15:35 Laboratory Results 06/28/17 04:40 06/28/17 04:40 06/27/17 06/28/17 06/29/17 05:59 05:59 05:59 Intake Total 550 Balance 550 Microbiology 06/25/17 20:14 Nasal, Sinus - Swab Respiratory Panel (PCR) - Final No Organism Detected Laboratory Tests 06/28/17 04:40 NT-Pro-B Natriuret Pep 556 H Physical Exam - Physical Exam General Appearance: alert, no apparent distress EENT: normal ENT inspection Neck: normal inspection Respiratory: lungs clear, normal breath sounds Cardiac/Chest: regular rate, rhythm, No edema Abdomen: normal bowel sounds, non-tender, soft Skin: normal color, warm/dry Extremities: non-tender Neuro/Psych: alert, normal mood/affect, oriented x 3 ICD10 Worksheet Patient Problems: Problems Problem Status Onset Pneumonia Acute Pulmonary edema Acute Respiratory failure Active Bipolar disorder Acute Chronic Disease Mgmt/Transitional Care Acute Methicillin resistant Staphylococcus aureus infection Acute ~03/31/17 Tricuspid valve disorder Acute
[2017-06-29] MEDS: ALPRAZolam 1 MG TAB PO PRN ×2 (02:51→23:59)
[2017-06-29] MEDS: ASENAPINE MALEATE 10 MG SUBLINGUAL TAB SL PRN ×2 (03:01→23:59)
[2017-06-29 05:05] LABS: PLATELET COUNT 263 10^3/uL (150-400)
[2017-06-29] MEDS: IPRATROPIUM/ALBUTEROL 3 ML DEYVIAL IH SCH ×4 (05:52→20:33)
[2017-06-29] MEDS: cefTRIAXone 1 GM in STERILE WATER INJ 10 ML IV SCH (08:41)
[2017-06-29] MEDS: ENOXAPARIN 40 MG/0.4 ML SYR SC SCH (08:41)
[2017-06-29] MEDS: lamoTRIgine 100 MG TAB PO SCH ×2 (08:42→10:55)
[2017-06-29] MEDS: AZITHROMYCIN 250 MG TAB PO SCH ×2 (08:42→10:34)
[2017-06-29] MEDS: ASPIRIN 81 MG CHEWABLE TAB PO SCH ×2 (08:42→10:34)
[2017-06-29] MEDS: ADDERALL 20 MG TAB PO SCH ×3 (08:42→13:57)
[2017-06-29] MEDS: FLUoxetine 20 MG CAP PO SCH ×2 (08:42→10:54)
[2017-06-29] MEDS: buPROPion XL 150 MG TAB PO SCH ×2 (08:42→10:55)
[2017-06-29] MEDS: predniSONE 20 MG TAB PO SCH ×2 (08:42→10:34)
--- NOTE | 2017-06-29 11:02 | HOSPPROG ---
Hospitalist Progress Note Assessment/Plan: # acute on chronic resp failure - suspect pna in setting of chronic lung disease - cont ctx/azith - cont pred - pulm following # COPD with acute exacerbation - cont pred 60 # CAP - ctx/azith # somnolence - resolved, likely d/t meds # possible underlying TELEPHONE EXCHANGE OPERATOR - followed by pulm # p-htn, right heart failure, new since 2016 - needs outpatient echo in 6 months - has a hx of MRSA endocarditis s/p TV repair # hx IVDU # anxiety - xanax # suspected bipolar - saphris, lamicatal, prozac # dvt ppx - lovenox Subjective: still dyspneic with ambulation; better than when admitted Objective: Vital Signs Temp Pulse Resp BP Pulse Ox 36.8 C 57 L 16 119/75 100 06/29/17 07:41 06/29/17 07:41 06/29/17 07:41 06/29/17 07:41 06/29/17 07:41 Laboratory Results 06/29/17 04:41 06/28/17 04:40 06/28/17 06/29/17 06/30/17 05:59 05:59 05:59 Intake Total 200 Balance 200 chart reviewed CXR personally reviewed - Physical Exam Constitutional: uncomfortable Cardiovascular: regular rate and rhythym, systolic murmur, No irregularly irregular, No diastolic murmur Respiratory: no respiratory distress, other (diminished BS bilat) Gastrointestinal: normoactive bowel sounds, soft, non-tender abdomen ICD10 Worksheet Patient Problems: Problems Problem Status Onset Pulmonary edema Acute Methicillin resistant Staphylococcus aureus infection Acute ~03/31/17 Respiratory failure Active Tricuspid valve disorder Acute Bipolar disorder Acute Pneumonia Acute Chronic Disease Mgmt/Transitional Care Acute
--- NOTE | 2017-06-29 17:01 | SOAPPROG ---
SOAP Progress Note Assessment/Plan: Assessment: Pneumonia: Likely infectious, but [employer] INFRASTRUCTURE CONSULTANT is a possibility. Respiratory panel negative. Improved, but still with hypoxemia requiring more O2 than his baseline. BNP down. On CTX/Marley, prednisone, so treating both infection and inflammatory process. Plan: Continue care. Continue antibiotics. Would recommend at least 7-10 days total. Continue prednisone for now. Consider starting taper tomorrow. Possible discharge to home tomorrow based on clinical status and oxygen requirements. Subjective: Feels better, not yet back to baseline. Coughing up some yellow brown mucus. Objective: Vital Signs Temp Pulse Resp BP Pulse Ox 36.6 C 89 20 120/86 H 90 L 06/29/17 14:21 06/29/17 14:21 06/29/17 14:21 06/29/17 14:21 06/29/17 14:48 Laboratory Results 06/29/17 04:41 06/28/17 04:40 06/28/17 06/29/17 06/30/17 05:59 05:59 05:59 Intake Total 200 Balance 200 CXR: Improving bilateral infiltrates Physical Exam - Physical Exam General Appearance: alert, no apparent distress EENT: other (Nasal cannula in place at 5 L) Neck: normal inspection Respiratory: lungs clear, decreased breath sounds, No rales, No rhonchi, No wheezing Cardiac/Chest: regular rate, rhythm, systolic murmur Abdomen: normal bowel sounds, non-tender, soft Skin: normal color, warm/dry Extremities: No pedal edema Neuro/Psych: no motor/sensory deficits, No cognition abnormalities ICD10 Worksheet Patient Problems: Problems Problem Status Onset Pneumonia Acute Pulmonary edema Acute Respiratory failure Active Bipolar disorder Acute Chronic Disease Mgmt/Transitional Care Acute Methicillin resistant Staphylococcus aureus infection Acute ~03/31/17 Tricuspid valve disorder Acute
[2017-06-30 05:02] LABS: PLATELET COUNT 275 10^3/uL (150-400)
[2017-06-30] MEDS: IPRATROPIUM/ALBUTEROL 3 ML DEYVIAL IH SCH ×4 (05:44→21:15)
[2017-06-30] MEDS: ENOXAPARIN 40 MG/0.4 ML SYR SC SCH (09:18)
[2017-06-30] MEDS: cefTRIAXone 1 GM in STERILE WATER INJ 10 ML IV SCH (09:18)
[2017-06-30] MEDS: predniSONE 20 MG TAB PO SCH (09:18)
[2017-06-30] MEDS: FLUoxetine 20 MG CAP PO SCH (09:19)
[2017-06-30] MEDS: AZITHROMYCIN 250 MG TAB PO SCH (09:19)
[2017-06-30] MEDS: ALPRAZolam 1 MG TAB PO PRN ×2 (09:19→14:46)
[2017-06-30] MEDS: buPROPion XL 150 MG TAB PO SCH (09:19)
[2017-06-30] MEDS: lamoTRIgine 100 MG TAB PO SCH (09:19)
[2017-06-30] MEDS: ADDERALL 20 MG TAB PO SCH ×2 (09:19→13:53)
[2017-06-30] MEDS: ASPIRIN 81 MG CHEWABLE TAB PO SCH (09:19)
--- NOTE | 2017-06-30 15:56 | ASMTCMCOM ---
CM Note CM Note Notes: CM spoke w/ Marybeth, RN regarding d/c POC. Pt will most likely not have any needs at time of d/c. CM available for changes. Plan: Independent Date Signed: 06/30/2017 03:56 PM Electronically Signed By:PABLO Green
--- NOTE | 2017-06-30 16:05 | HOSPPROG ---
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 - followed by pulm # p-htn, right heart failure, new since 2016 - needs outpatient echo in 6 months - has a hx of MRSA endocarditis s/p TV repair # hx IVDU # anxiety - xanax # suspected bipolar - saphris, lamicatal, prozac # dvt ppx - lovenox Subjective: slow improvement; 80% spO2 with activity; still coughing up mucous Objective: Vital Signs Temp Pulse Resp BP Pulse Ox 36.8 C 88 18 150/97 H 95 06/30/17 15:57 06/30/17 15:57 06/30/17 15:57 06/30/17 15:57 06/30/17 15:57 Laboratory Results 06/30/17 04:41 06/30/17 04:41 06/29/17 06/30/17 07/01/17 05:59 05:59 05:59 Intake Total 200 10 Balance 200 10 - Physical Exam Constitutional: other (anxious) Cardiovascular: regular rate and rhythym, no murmur, rub, or gallop Respiratory: no respiratory distress, no rales or rhonchi Gastrointestinal: soft, non-tender abdomen, no palpable masses ICD10 Worksheet Patient Problems: Problems Problem Status Onset Pulmonary edema Acute Methicillin resistant Staphylococcus aureus infection Acute ~03/31/17 Respiratory failure Active Tricuspid valve disorder Acute Bipolar disorder Acute Pneumonia Acute Chronic Disease [facility]/Transitional Care Acute
--- NOTE | 2017-06-30 17:21 | SOAPPROG ---
SOAP Progress Note Assessment/Plan: Assessment: Pneumonia: Likely infectious, but CLIENT SUPPORT ASSOCIATE is a possibility. Respiratory panel negative. Improved, but still with hypoxemia requiring more O2 than his baseline. BNP down. On CTX/Marley, prednisone, so treating both infection and inflammatory process. Plan: Continue care. Continue antibiotics. Would recommend at least 7-10 days total of antibiotics. Continue prednisone at 60, with slow wean on discharge. Will check spirometry tomorrow at bedside. Increase ambulation. Saturations in the upper 80s should be fine. Will follow with you. Dr. Stone will follow the patient for pulmonary issues after discharge. Subjective: Feels okay. Some cough and mucus. Says he desaturates despite oxygen at 5 L with activity around his room/bathroom. Objective: Vital Signs Temp Pulse Resp BP Pulse Ox 36.8 C 77 20 150/97 H 97 06/30/17 15:57 06/30/17 16:57 06/30/17 16:57 06/30/17 15:57 06/30/17 16:57 Laboratory Results 06/30/17 04:41 06/30/17 04:41 06/29/17 06/30/17 07/01/17 05:59 05:59 05:59 Intake Total 200 10 Balance 200 10 Physical Exam - Physical Exam General Appearance: alert, no apparent distress EENT: other (Nasal cannula 2-3 L: 95%) Neck: No normal inspection (noobvius JVD) Respiratory: lungs clear (Anteriorly), decreased breath sounds (To some extent at bases), rales (Few rales present at left lower base posteriorly. Otherwise clear.) Cardiac/Chest: regular rate, rhythm, systolic murmur Abdomen: normal bowel sounds, non-tender, soft Skin: normal color, warm/dry Extremities: No pedal edema Neuro/Psych: no motor/sensory deficits, No cognition abnormalities ICD10 Worksheet Patient Problems: Problems Problem Status Onset Pulmonary edema Acute Methicillin resistant Staphylococcus aureus infection Acute ~03/31/17 Respiratory failure Active Tricuspid valve disorder Acute Bipolar disorder Acute Pneumonia Acute Chronic Disease Mgmt/Transitional Care Acute
[2017-07-01] MEDS: ASENAPINE MALEATE 10 MG SUBLINGUAL TAB SL PRN (00:58)
[2017-07-01] MEDS: ALPRAZolam 1 MG TAB PO PRN ×3 (01:38→18:18)
[2017-07-01 05:16] LABS: PLATELET COUNT 283 10^3/uL (150-400)
[2017-07-01] MEDS: IPRATROPIUM/ALBUTEROL 3 ML DEYVIAL IH SCH ×3 (05:31→16:14)
[2017-07-01] MEDS: buPROPion XL 150 MG TAB PO SCH (08:52)
[2017-07-01] MEDS: predniSONE 20 MG TAB PO SCH (08:52)
[2017-07-01] MEDS: lamoTRIgine 100 MG TAB PO SCH (08:53)
[2017-07-01] MEDS: FLUoxetine 20 MG CAP PO SCH (08:53)
[2017-07-01] MEDS: ENOXAPARIN 40 MG/0.4 ML SYR SC SCH (08:54)
[2017-07-01] MEDS: ASPIRIN 81 MG CHEWABLE TAB PO SCH (09:14)
[2017-07-01] MEDS: AZITHROMYCIN 250 MG TAB PO SCH (09:14)
[2017-07-01] MEDS: cefTRIAXone 1 GM in STERILE WATER INJ 10 ML IV SCH (09:15)
[2017-07-01] MEDS: ADDERALL 20 MG TAB PO SCH ×2 (09:15→11:50)
[2017-07-01 14:25] VITALS: BP 124/78; PULSE 76; TEMP 98.5
[2017-07-01 16:27] VITALS: RESP 14; O2SAT 94
--- NOTE | 2017-07-01 17:12 | GDS ---
[f rep st] DISCHARGE SUMMARY ALL CONSULTATIONS: Pulmonology. ALL DIAGNOSES: 1. Acute on chronic respiratory failure. 2. Chronic obstructive pulmonary disease with acute exacerbation. 3. Community-acquired pneumonia. 4. Underlying interstitial lung disease, possibly cryptogenic organizing pneumonia (PRIVACY DIRECTOR). 5. Pulmonary hypertension and right heart failure. 6. History of intravenous drug use. 7. Anxiety. 8. Bipolar disorder. HOSPITAL COURSE: A 42-year-old man admitted with severe underlying lung disease including possible C OP versus other interstitial lung disease, as well as COPD, who presents with worsening breathing. C T showed likely acute on chronic lung disease. He has been treated for community-acquired pneumonia with very slow improvement. He has also been treated with moderate dose prednisone, 60 mg daily. He has been seen by Pulmonology, who agrees with all this. On the day of discharge, he is ambulating w ell. He has oxygen at home already, he desaturated to 87% while doing stairs today. We will continu e oxygen. He will be given an additional week's worth of Levaquin. He will be given a slow predniso ne taper. I recommend that he see Dr. Stone in about 2 weeks to followup. He will still be on predn isone at that time. He also has right-sided heart failure. This is likely due to his lung disease. 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 Luke, in about 1 month. He agrees with this. He is very concerned about having an undiagnosed fungal skin infection. He believes that his girlfri end also has this. I do not have any evidence of a fungal infection while he is here. I recommend fariba sargent if she is concerned, that she should have some of her lesions biopsied by a product support sales representative as an o utpatient. BILLING: I spent more than 30 minutes on the day of discharge coordinating care. /[id number]/MODL
--- NOTE | 2017-07-01 17:57 | SOAPPROG ---
SOAP Progress Note Assessment/Plan: Assessment: Pneumonia: Likely infectious, but ENTHONE SOLDER STRIPPER is a possibility. Respiratory panel negative. Improved, but still with hypoxemia requiring more O2 than his baseline. BNP down. On CTX/Marley, prednisone, so treating both infection and inflammatory process. Plan: Okay to discharge home today. He does not need oxygen at rest or with light physical activities. Recommend continuing antibiotics on discharge for a total of 10 days: Perhaps Levaquin for a community-acquired atypical process. Recommend discharging the patient on 40 mg prednisone with a taper of [address] Stone will follow the patient for pulmonary issues after discharge. Recommend this pulmonary follow-up be in approximately [address] Rosario Subjective: Feels better today. On less oxygen. Has multiple questions. Objective: Vital Signs Temp Pulse Resp BP Pulse Ox 36.9 C 76 14 124/78 H 94 07/01/17 14:24 07/01/17 16:15 07/01/17 16:15 07/01/17 14:24 07/01/17 16:15 Laboratory Results 07/01/17 04:42 07/01/17 04:42 06/30/17 07/01/17 07/02/17 05:59 05:59 05:59 Intake Total 10 750 Balance 10 750 Spirometry shows mild restrictive and obstructive disease without improvement after bronchodilator. Forced vital capacity is approximately 79% of predicted. The patient was ambulated on room air. After being off of oxygen for 20-30 minutes his saturations to start were 93%. With ambulation and attention to concentrating on taking adequate breasts saturations XA went up to 95 were 96%. At the end of the walk saturations were 92%. Heart rate ralph to approximately 85. He never became dyspneic. There is no coughing, no wheezing. Physical Exam - Physical Exam General Appearance: alert, no apparent distress EENT: PERRL/EOMI, other (93% on room air at rest) Neck: normal inspection Respiratory: lungs clear, decreased breath sounds (Bilaterally), rales (Minimal rales at the right base, no change.), No rhonchi, No wheezing Cardiac/Chest: regular rate, rhythm, systolic murmur Abdomen: normal bowel sounds, non-tender, soft Skin: normal color, warm/dry Extremities: No pedal edema Neuro/Psych: no motor/sensory deficits, No cognition abnormalities ICD10 Worksheet Patient Problems: Problems Problem Status Onset Pulmonary edema Acute Methicillin resistant Staphylococcus aureus infection Acute ~03/31/17 Respiratory failure Active Tricuspid valve disorder Acute Bipolar disorder Acute Pneumonia Acute Chronic Disease Mgmt/Transitional Care Acute
== END 2017-07-01 20:42 | disposition home or self-care (01) | DRG 193 ==
LOC: OBSVTOIN 06-25 00:06 → F2N 06-25 02:09 → F3E 06-26 10:21
PROVIDERS: ADMIT Student in an Organized Health Care Education/Training Program; ATTEND Student in an Organized Health Care Education/Training Program
DX: J18.9 Pneumonia, unspecified organism (principal); J44.0 Chronic obstructive pulmonary disease with (acute) lower respiratory infection; J43.9 Emphysema, unspecified; J96.01 Acute respiratory failure with hypoxia; J84.9 Interstitial pulmonary disease, unspecified; I27.23 Pulmonary hypertension due to lung diseases and hypoxia; F41.9 Anxiety disorder, unspecified; F31.9 Bipolar disorder, unspecified; Z87.891 Personal history of nicotine dependence
CPT/HCPCS: 80305; 97116-GP; 97162-GP; 97530-GP; G8978-GP-CJ; G8979-GP-CI; J0696; J1650; J1940; J2543; J3370; J7512

== ENCOUNTER → 2017-07-17 | Outpatient (CLI) | payer OTHER | LOC: FIMAGING 14:14 | PROVIDERS: ATTEND Internal Medicine Critical Care Medicine | DX: J18.9 Pneumonia, unspecified organism (principal) ==

== ENCOUNTER → 2017-08-04 | Outpatient (CLI) | payer OTHER | LOC: BHFA 14:00 | PROVIDERS: ATTEND Internal Medicine Cardiovascular Disease | DX: R09.02 Hypoxemia (principal); I50.810 Right heart failure, unspecified; I07.9 Rheumatic tricuspid valve disease, unspecified ==

== ENCOUNTER → 2017-09-04 | Outpatient (CLI) | payer OTHER | LOC: BHFA 14:00 | PROVIDERS: ATTEND Internal Medicine | DX: I07.9 Rheumatic tricuspid valve disease, unspecified (principal) ==

== ENCOUNTER → 2017-09-14 | Outpatient (CLI) | payer OTHER | LOC: FIMAGING 15:49 | PROVIDERS: ATTEND Internal Medicine Critical Care Medicine | DX: J18.9 Pneumonia, unspecified organism (principal) ==

== ENCOUNTER 2018-07-07 16:07 | Emergency (ER) | payer OTHER ==
--- NOTE | 2018-07-07 16:58 | EDPHY ---
H & P Smoking Status: Former smoker Time Seen by Provider: 07/07/18 16:46 HPI/ROS: HPI Swelling of right arm. 43-year-old male on foot. This patient has a history of IV drug abuse and skin popping. He tells me that he has not used heroin or other drugs in some time. He states that he also has psychiatric issues and states that about 2 weeks ago he was trying to dig out a "fungal infection "from the middle of his right lateral arm. He developed a red swelling which has grown significantly in size since that time. He has not had a fever. He reports that he had some Augmentin at home left over from a previous abscess and has been taking that for the last 4 days with no relief. He is right-hand dominant. ROS: Constitutional: No fever, no chills. No weakness. Respiratory: No cough. No shortness of breath. Cardiac: No chest pain, no palpitations. Gastrointestinal: No abdominal pain, no vomiting, no diarrhea. Musculoskeletal: No back pain. No neck pain. As above. Skin: As above. Neurological: No headache. No focal weakness or altered sensation. Past medical history: Bipolar, pneumonia, tricuspid valve repair in 2012, pericarditis. Social history: Former smoker. Denies alcohol. Heroin abuser. As above. Physical Exam: General Appearance: Alert, no distress. This patient is responding to questions appropriately and in full sentences. This patient appears well- hydrated and well-nourished. Eyes: Pupils equal and round no pallor or injection. No lid edema, erythema or injection. Right upper extremity exam: Significant for a large erythematous abscess with a fluctuant head about 5 cm across in diameter right mid lateral arm. The right upper extremity is neurovascularly intact. There is a ring of erythematous border around this abscess measuring about 2 cm to 3 cm in maximum thickness. No edema beyond erythema. No circumferential edema or erythema. Respiratory: There are no retractions, lungs are clear to auscultation with good air movement bilaterally. Cardiovascular: Regular rate and rhythm. No murmur. Neurological: Motor sensory function is grossly intact. Cranial nerves are normal. Gait is normal. Skin: Warm and dry, no rashes. Musculoskeletal: Neck is supple and nontender. Extremities are symmetrical. All joints range without pain or impingement. Psychiatric: No agitation. No depression. Database: EKG: Imaging: Procedures: Emergency department course: Triage vital signs reviewed. He is borderline febrile. Vital signs are otherwise normal. Plan for incision and drainage of right arm abscess discussed. The patient consents. Plan will be to pace the patient on Bactrim and Keflex after procedure. Patient given 500 mg of Keflex and 1 Bactrim DS tablet in the emergency department. 6:00 p.m., patient status post incision and drainage, he has received his oral antibiotics. I discussed with him filling his prescriptions in the importance of taking his antibiotics as prescribed. Follow-up was reviewed with him, return to emergency department precautions and wound care discussed. All of his questions were answered. He was discharged from the emergency department in good condition. Differential Diagnosis: The differential diagnosis on this patient includes but is not limited to right arm abscess with associated cellulitis. DVT, significant neurovascular injury unlikely. This represents a partial list of diagnoses considered. These considerations are based on history, physical exam, past history, reassessment and diagnostic testing. (Lisset Jackson) Constitutional: Initial Vital Signs Temperature (C) 37.7 C 07/07/18 16:14 Heart Rate 93 07/07/18 16:14 Respiratory Rate 18 07/07/18 16:14 Blood Pressure 132/76 H 07/07/18 16:14 O2 Sat (%) 96 07/07/18 16:14 O2 Delivery Mode Room Air Allergies/Adverse Reactions: No Allergies [NKDA] Allergy (Verified 07/07/18 16:14) CATS Allergy (Uncoded 08/27/12 02:02) Home Medications: Medication Instructions Recorded ALPRAZolam [Xanax 1 MG (*)] 1 mg PO TID PRN 07/21/11 FLUoxetine [Prozac 20 MG (*)] 60 mg PO DAILY 07/21/11 lamoTRIgine [LamICTAL 100 MG (*)] 200 mg PO DAILY 07/21/11 Zolpidem Tartrate [Ambien 10 mg] 10 mg PO HS PRN 06/04/12 Asenapine Maleate [Saphris] 10 mg SL HS PRN 08/27/12 Propranolol HCl [Inderal 20mg (*)] 20 mg PO DAILY PRN 08/27/12 Multivitamins [Multivitamin (*)] 1 each PO DAILY 09/10/15 Acetaminophen [Tylenol 325mg (*)] 650 mg PO Q4 PRN #0 tab 09/14/15 Aspirin [Aspirin 81mg (*)] 81 mg PO DAILY 09/19/15 Amphet Asp and D/Amphet [Adderall 40 - 60 mg PO DAILY 06/25/17 20 mg (*)] buPROPion XL [Wellbutrin 150mg XL] 300 mg PO DAILY 06/25/17 Albuterol [Proventil Inhaler HFA 1 - 2 puffs IH Q4H PRN #1 mdi 07/01/17 (*)] levOFLOXACIN [levAQUIN (*)] 750 mg PO DAILY #5 tab 07/01/17 predniSONE [Prednisone] 10 mg PO DAILY 35 Days tablet 07/01/17 Cephalexin [Keflex (*)] 500 mg PO Q6 10 Days cap 07/07/18 Sulfamethox/Tmp 800/160 mg 1 tab PO BID@1000,2200 #20 tab 07/07/18 [Bactrim Ds] Medical Decision Making Procedures: Procedure: Abscess drainage. The patient's abscess was located on the right upper arm. I obtained verbal consent from the patient to drain the abscess who was informed about the possibility of bleeding and pain. The abscess was incised with #18 scalpel and 40 mL amount of purulent drainage was expressed. I irrigated the wound and placed some 2 inch iodoform packing. Clean sterile dressing applied. The patient tolerated the procedure well. The procedure was performed by myself. (Xiomy Garcia) ED Course/Re-evaluation: Incision and drainage performed by myself with wound culture sent 40 mL of purulent discharge removed 2 in iodoform packing placed. Clean sterile dressing applied. Verbal and written wound care instructions provided Return in 48-72 hours for wound check and packing removal. Given a prescription for Keflex and Bactrim (Xiomy Garcia) - Data Points Medications Given: Discontinued Medications Cephalexin HCl (Keflex) 500 mg PO EDNOW ONE PRN Reason: Protocol Stop: 07/07/18 17:01 Last Admin: 07/07/18 17:14 Dose: 500 mg Trimethoprim/Sulfamethoxazole (Bactrim Ds) 1 ea PO EDNOW ONE PRN Reason: Protocol Stop: 07/07/18 17:02 Last Admin: 07/07/18 17:14 Dose: 1 ea Departure - Departure Disposition: Home, Routine, Self-Care Clinical Impression: Abscess Condition: Good Instructions: Abscess (ED) Additional Instructions: Read and follow provided instructions. Follow-up with your primary care physician in 2 days days for re-evaluation and recheck. Take antibiotics exactly as prescribed through entire course of treatment. Return to the emergency department for worsening pain, swelling, discoloration, spreading of redness, fever, bleeding or other serious concerns. Referrals: [facility],. [Clinic] - As per Instructions Prescriptions: Cephalexin [Keflex (*)] 500 mg PO Q6 10 Days cap Sulfamethox/Tmp 800/160 mg [Bactrim Ds] 1 tab PO BID@1000,2200 #20 tab
[2018-07-07] MEDS ORDERED: CEPHALEXIN 500 MG CAP PO ONE (17:00)
[2018-07-07] MEDS ORDERED: SULFAMETHOX/TMP 800/160 MG 1 TAB PO ONE (17:01)
[2018-07-07 18:02] VITALS: BP 120/81
== END 2018-07-07 18:02 | disposition home or self-care (01) ==
PROC: 0H9BXZZ Drainage of Right Upper Arm Skin, External Approach (ICD-10-PCS; principal; 2018-07-07)
DX: L02.413 Cutaneous abscess of right upper limb (principal)